=== PATIENT | male | born 1960 | race Caucasian/White ===

== ENCOUNTER 2022-06-09 16:51 | Outpatient (CLI) | payer BC | END 2022-06-09 16:52 | disposition short-term general hospital (02) | LOC: EMS 16:51 | DX: R07.89 Other chest pain (principal) | CPT/HCPCS: A0425; A0427 ==

== ENCOUNTER 2022-10-14 10:27 | Emergency (ER) | payer BC ==
[2022-10-14 10:53] VITALS: BP 148/70
[2022-10-14] MEDS ORDERED: SODIUM CHLORIDE 0.9% 1,000 ML IV STA (11:42)
[2022-10-14] MEDS ORDERED: DEXAMETHASONE 10 MG/ML VIAL IVP STA (11:42)
[2022-10-14] MEDS ORDERED: KETOROLAC 15 MG/ML VIAL IVP STA (11:42)
--- NOTE | 2022-10-14 11:43 | ED Physician Documentation ---
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 He started Paxlovid yesterday. He is worried about a productive cough, some borderline home oxygen saturations at 90, severe body aches and fatigue. PD PAST MEDICAL HISTORY - Allergies Allergies/Adverse Reactions: Allergies Allergy/AdvReac Type Severity Reaction Status Date / Time tetracycline Allergy Cramps Verified 10/14/22 10:53 PD ED PE NORMAL - Vitals Vital signs reviewed: Yes - General General: Alert and oriented X 3, No acute distress - Cardiac Cardiac: RRR, No murmur - Respiratory Respiratory: No respiratory distress, Clear bilaterally - Abdomen Abdomen: Non tender - Neuro Neuro: Alert and oriented X 3, Normal speech Results - Vitals Vitals: Vital Signs - 24 hr 10/14/22 10:47 Temperature 37.1 C Heart Rate 80 Respiratory 20 Rate Blood Pressure 148/70 H O2 Saturation 95 Oxygen O2 Source Room air - Labs Labs: Laboratory Tests 10/14/22 10/14/22 11:51 11:51 WBC 5.5 RBC 4.36 L Hgb 13.9 L Hct 42.7 MCV 97.9 H MCH 31.9 H MCHC 32.6 RDW 12.6 Plt Count 209 MPV 9.5 Neut # (Auto) 3.2 Lymph # (Auto) 0.9 L [place] # (Auto) 1.3 H Eos # (Auto) 0.0 Baso # (Auto) 0.0 Absolute Nucleated RBC 0.00 Nucleated RBC % 0.0 Sodium 139 Potassium 3.8 Chloride 103 Carbon Dioxide 27 Anion Gap 9.0 BUN 12 Creatinine 1.1 Estimated GFR (MDRD) 68 L Glucose 100 Calcium 8.8 - Rads (name of study) Single view chest x-ray is unremarkable Relevant Findings:: Final report received, EMP independent interpretation of test PD Medical Decision Making - ED course ED course: 62-year-old well-appearing gentleman with COVID presents with symptoms related to COVID. Medicated here with Toradol and IV fluids and dexamethasone with improvement. Chest x-ray showing no pneumonia. Given close return precautions. He is already on antivirals. Departure - Departure Disposition: 01 Home, Self Care Clinical Impression: COVID-19 Condition: Good Record reviewed to determine appropriate education?: Yes Instructions: ED Viral Syndrome Comments: Tylenol and/or ibuprofen as needed for aches and pains. Drink plenty fluids. Return if worse. Quarantine for 10 days per CDC guidelines. Discharge Date/Time: 10/14/22 13:37
[2022-10-14 11:56] LABS: BASOPHILS % (AUTO) 0.7 %; EOSINOPHILS % (AUTO) 0.6 %; HCT - HEMATOCRIT 42.7 % (42.0-52.0); HGB - HEMOGLOBIN 13.9 g/dL (14.0-18.0); LYMPHOCYTES # (AUTO) 0.9 10^3/uL (1.5-3.5); LYMPHOCYTES % (AUTO) 16.5 %; MEAN CORPUSCULAR HEMOGLOBIN 31.9 pg (27.0-31.0); MEAN CORPUSCULAR HGB CONC 32.6 g/dL (32.0-36.0); MEAN CORPUSCULAR VOLUME 97.9 fL (80.0-94.0); MEAN PLATELET VOLUME 9.5 fL (7.4-11.4); MONOCYTES # (AUTO) 1.3 10^3/uL (0.0-1.0); MONOCYTES % (AUTO) 23.3 %; NEUTROPHILS # (AUTO) 3.2 10^3/uL (1.5-6.6); NEUTROPHILS % (AUTO) 58.7 %; PLT - PLATELET COUNT 209 10^3/uL (130-450); RED BLOOD COUNT 4.36 10^6/uL (4.70-6.10); RED CELL DISTRIBUTION WIDTH 12.6 % (12.0-15.0); WHITE BLOOD COUNT 5.5 x10^3/uL (4.8-10.8)
[2022-10-14 12:05] LABS: CALCIUM 8.8 mg/dL (8.5-10.3); CREATININE 1.1 mg/dL (0.6-1.2); POTASSIUM 3.8 mmol/L (3.5-5.0)
--- NOTE | 2022-10-14 12:57 | XRAY Report ---
PROCEDURE: Chest 1 View X-Ray INDICATIONS: cough, covid positive TECHNIQUE: One view of the chest was acquired. COMPARISON: None. FINDINGS: Surgical changes and devices: None. Lungs and pleura: No pleural effusions or pneumothorax. Lungs are clear. Mediastinum: Mediastinal contours appear normal. Heart size is normal. Bones and chest wall: No suspicious bony lesions. Overlying soft tissues appear unremarkable. IMPRESSION: No acute cardiopulmonary findings Reviewed by: Issac Mercer MD on 10/14/2022 11:55 AM [facility] Approved by: Issac Mercer MD on 10/14/2022 11:55 AM [facility] Station ID: [id number]
== END 2022-10-14 13:37 | disposition home or self-care (01) ==
LOC: ED 10:27
DX: U07.1 COVID-19 (principal)
CPT/HCPCS: 36415; 80048; 85025; 96374; 96375; 99283

== ENCOUNTER 2023-07-06 08:00 | Outpatient (CLI) | payer BC, OTHER ==
--- NOTE | 2023-07-06 13:01 | XRAY Report ---
PROCEDURE: Foot 3+V LT INDICATIONS: LEFT FOOT SPUR CALCANEAL TECHNIQUE: Left views of the foot were acquired. COMPARISON: None. FINDINGS: Bones: No fractures or dislocations. No suspicious bony lesions. Tiny plantar calcaneal spur. Soft tissues: No suspicious soft tissue calcifications or masses. IMPRESSION: Tiny plantar calcaneal spur. Reviewed by: Samir Covarrubias MD on 07/06/2023 12:00 PM [facility] Approved by: Samir Covarrubias MD on 07/06/2023 12:00 PM [facility] Station ID: [id number]
== END 2023-07-06 23:59 | disposition home or self-care (01) ==
LOC: DI.S 08:00
PROVIDERS: ATTEND Emergency Medicine
DX: M77.32 Calcaneal spur, left foot (principal)

== ENCOUNTER 2023-10-10 18:16 | Outpatient (CLI) | payer OTHER ==
--- NOTE | 2023-10-10 19:40 | Ultrasound Report ---
PROCEDURE: Testicle INDICATIONS: ORCHITIS AND EPIDIDYMITIS TECHNIQUE: Real-time scanning was performed of the scrotum and testicles, with image documentation. Color and p ulse Doppler interrogation was performed of both testicles. COMPARISON: None. FINDINGS: Right: Testicle is normal in size at 4.7 x 2.8 x 3.2 cm, and homogenous in echotexture. Epididymis is appears thickened and heterogeneous with increased vascularity. Large hydrocele. Mild varicoceles . Overlying scrotal skin is normal mildly thickened. Left: Testicle is normal in size at 4.8 x 2.7 x 2.6 cm, and homogeneous in echotexture. Epididymis is normal in overall size and morphology. Moderate hydrocele. Mild varicoceles. Overlying scrotal s kin is mildly thickened. Doppler: Color and pulse Doppler demonstrate normal and symmetric arterial flow in both testicles. IMPRESSION: 1.Heterogeneous and hypervascular appearance of the right epididymis is suspicious for epididymitis. 2.No sonographic signs of testicular torsion. Concordant preliminary findings were conveyed to the blade boner provider by the gericare aide teacher on 10/10/2023 at 6:50 PM. Reviewed by: Paco Dumont MD on 10/10/2023 7:38 PM PDT Approved by: Paco Dumont MD on 10/10/2023 7:38 PM PDT Station ID: [id number]
== END 2023-10-10 18:17 | disposition home or self-care (01) ==
LOC: DI 18:16
PROVIDERS: ATTEND Registered Nurse
DX: N45.3 Epididymo-orchitis (principal)